=== PATIENT | male | born 1980 | race Two or more races ===

== ENCOUNTER 2018-08-22 19:00 | Emergency (ER) | payer SELFPAY ==
[~2018-08-22] VITALS: Ht 157.5 cm; Wt 68.2 kg
[2018-08-22 19:02] VITALS: Ht 157.5 cm; Wt 68.2 kg
[2018-08-22] MEDS ORDERED: BACLOFEN20 M1 PO (19:28)
[2018-08-22] MEDS ORDERED: VOLTAREN75 MG PO (19:28)
[2018-08-22 21:15] VITALS: BP 113/61
== END 2018-08-22 21:15 | disposition home or self-care (01) ==
LOC: D.ER 19:00
DX: S16.1XXA Strain of muscle, fascia and tendon at neck level, initial encounter (principal); S46.912A Strain of unspecified muscle, fascia and tendon at shoulder and upper arm level, left arm, initial encounter; V49.9XXA Car occupant (driver) (passenger) injured in unspecified traffic accident, initial encounter